=== PATIENT | female | born 1950 | race Caucasian/White ===

== ENCOUNTER 2019-11-07 07:08 | Outpatient (CLI) | payer MEDICARE ==
[2019-11-07] MEDS ORDERED: GADOTERATE 7.5 MMOL/15 ML SYR ONE (08:17)
[2019-11-07] MEDS ORDERED: MELO15TA24 PO (10:23)
[2019-11-08] MEDS ORDERED: ATOR40TA PO (14:59)
[2019-11-08] MEDS ORDERED: ASPI-515 PO/NG (14:59)
[2019-11-08] MEDS ORDERED: CLOP75TA PO (14:59)
== END 2019-11-07 23:59 | disposition home or self-care (01) ==
LOC: CFH 07:08
PROVIDERS: ATTEND Specialist
DX: I63.9 Cerebral infarction, unspecified (principal); C34.92 Malignant neoplasm of unspecified part of left bronchus or lung; D72.829 Elevated white blood cell count, unspecified; D47.3 Essential (hemorrhagic) thrombocythemia
CPT/HCPCS: 70553; A9575

== ENCOUNTER 2019-11-07 09:24 | Observation (INO) | payer MEDICARE ==
[~2019-11-07] VITALS: Ht 162.6 cm; Wt 68.6 kg
[2019-11-07 09:51] LABS: MEAN CORPUSCULAR HEMOGLOBIN 25.8 pg (27.0-34.8); MEAN CORPUSCULAR HGB CONC 31.8 g/dL (32.4-35.8); MEAN CORPUSCULAR VOLUME 81.2 fL (80-100); PLATELET COUNT 716 x10^3/uL (130-400); RED BLOOD COUNT 3.32 x10^6/uL (3.82-5.3)
[2019-11-07] MEDS ORDERED: SODIUM CHLORIDE FLUSH 10ML SYR IVF ONE (10:00)
--- NOTE | 2019-11-07 10:00 | NUR ---
POC ISCUSSED PT NOT TO RECIEVE TPA. PT VSS, NAD NOTED. PT TO MOVE TO CORE ROOM 21
--- NOTE | 2019-11-07 10:00 | NUR ---
PT WAS SEEN TODAY AT [facility] OUTPATIENT RADIOLOGY SENT BYHER MILLIE DESAI FOR CT SCAN AND PET SCAN. A SMALL CERABELLAR INFARCT WAS IDENTIFIED ON THE CT SCAN AND PT WAS INSTRUCTED TO COME TO THE ED. PT STRAIGHT TO TRAUMA ROOM 3 FROM TRIAGE, DR JIMENEZ AT BEDSIDE. ASSESSMENT REVIEWED.
[2019-11-07 10:02] LABS: ANION GAP 11 mmol/L (5-15); CALCIUM 10.4 mg/dL (8.5-10.1); CHLORIDE 100 mmol/L (98-107); CREATININE 1.44 mg/dL (0.55-1.02); INTERNATIONAL NORMALIZED RATIO 1.18 (0.93-1.1); PROTHROMBIN TIME 12.5 Seconds (9.6-11.5)
[2019-11-07 10:06] LABS: TROPONIN I < 0.015 ng/mL (0.000-0.045)
[2019-11-07 10:14] LABS: BASOPHILS # (AUTO) 0.24 x10^3/uL (0-0.1); BASOPHILS % (AUTO) 1 % (0-1); EOSINOPHILS # (AUTO) 0.34 x10^3/uL (0-0.4); EOSINOPHILS % (AUTO) 2 % (1-7); LYMPHOCYTES # (AUTO) 1.99 x10^3/uL (1-3.4); LYMPHOCYTES % (AUTO) 8 % (22-44); MD MORPH REVIEW ONLY; MONOCYTES # (AUTO) 1.05 x10^3/uL (0.2-0.8); MONOCYTES % (AUTO) 4 % (2-9); NEUTROPHILS # (AUTO) 19.99 x10^3/uL (1.8-6.8); NEUTROPHILS % (AUTO) 85 % (42-75)
[2019-11-07 10:15] LABS: <PLATELET ESTIMATE> INCREASED; ANISOCYTOSIS 1+; HYPOCHROMIA 1+; POLYCHROMASIA 1+
[2019-11-07 10:16] LABS: <PLT MORPHOLOGY> NORMAL PLT MORPH
[2019-11-07] MEDS ORDERED: MELO15TA24 PO (10:23)
--- NOTE | 2019-11-07 10:35 | NUR ---
SBAR RPT TO HANNAH BUTCHER AND PT MOVED TO ROOM 21
--- NOTE | 2019-11-07 10:36 | NUR ---
REPORT RECEIVED FROM CHRISTOFER YOUNG
--- NOTE | 2019-11-07 10:37 | NUR ---
WATER PROVIDED AT THIS TIME.
[2019-11-07] MEDS ORDERED: SODIUM CHLORIDE FLUSH 10ML SYR IVF PRN (11:00)
--- NOTE | 2019-11-07 11:15 | NUR ---
PT PROVIDED URINE SAMPLE AT THIS TIME. UA SENT.
[2019-11-07 11:30] LABS: MICROSCOPIC INDICATED
[2019-11-07 11:33] LABS: CULTURE INDICATED? NO
[2019-11-07] MEDS: SODIUM CHLORIDE 0.9% 1,000 ML IV SCH (12:07)
[2019-11-07] MEDS ORDERED: CEFTRIAXONE PMX 2GM/50ML 50 ML IV SCH (12:30)
[2019-11-07] MEDS ORDERED: ONDANSETRON 2MG/ML, 2ML IVPush PRN (12:30)
[2019-11-07] MEDS ORDERED: ONDANSETRON 4 MG TABLET PO PRN (12:30)
[2019-11-07] MEDS ORDERED: morphine SULFATE 10 MG/ML, 1ML IVPush PRN (12:30)
[2019-11-07] MEDS ORDERED: OXYcodone/APAP 5/325MG TABLET PO PRN (12:30)
--- NOTE | 2019-11-07 12:32 | NUR ---
BREAK RN: DR BORGES AT BEDSIDE. ADMIT ORDERS REC'D.
[2019-11-07] MEDS ORDERED: CEFTRIAXONE PMX 2GM/50ML 50 ML ONE (12:50)
--- NOTE | 2019-11-07 13:14 | NUR ---
NS INFUSING AT THIS TIME. PT TOLERATED WELL. US AT BEDSIDE NOW.
--- NOTE | 2019-11-07 14:24 | NUR ---
hospitalist at bedside at this time.
--- NOTE | 2019-11-07 14:53 | NUR ---
WARM BLANCKET GIVEN. LAB PAGED X2 FOR BLOOD CULTURE. AWAITING BLOOD CULTURE FOR ABX.
--- NOTE | 2019-11-07 15:03 | NUR ---
REPORT GIVEN TO MACARIO YOUNG. ALL QUESTIONS ANSWERED.
[2019-11-07 15:57] VITALS: BP 124/78
[2019-11-07 17:07] LABS: ANION GAP 11 mmol/L (5-15); CALCIUM 9.9 mg/dL (8.5-10.1); CHLORIDE 100 mmol/L (98-107); CREATININE 1.25 mg/dL (0.55-1.02)
[2019-11-07] MEDS: CLOPIDOGREL 75 MG TABLET PO SCH (18:41)
[2019-11-07] MEDS: ACETAMINOPHEN 650 MG/20.3 ML UDC PO PRN (19:47)
[2019-11-07 20:13] VITALS: BP 136/69
[2019-11-07] MEDS ORDERED: ATORVASTATIN 80 MG TABLET PO SCH (21:00)
[2019-11-08] MEDS ORDERED: DIPHENHYDRAMINE 12.5MG/5ML, 10ML UDC PO PRN
[2019-11-08 01:26] VITALS: BP 115/67
[2019-11-08] MEDS: SODIUM CHLORIDE 0.9% 1,000 ML IV SCH ×2 (02:08→11:40)
[2019-11-08 05:32] LABS: ANION GAP 9 mmol/L (5-15); CALCIUM 8.9 mg/dL (8.5-10.1); CHLORIDE 106 mmol/L (98-107); CHOLESTEROL, TOTAL 91 mg/dL (140-239); TRIGLYCERIDES 80 mg/dL (50-200); VLDL CHOLESTEROL 16 mg/dL (0-25)
[2019-11-08 05:35] LABS: CHOL/HDL RATIO 5.1; HDL CHOL % 20 % (28-40); HDL CHOLESTEROL (DIRECT) 18 mg/dL (40-60); LDL CHOLESTEROL,CALCULATED 57 mg/dL (54-169); LDL/HDL RATIO 3.2 (0.5-3.0)
[2019-11-08 07:37] VITALS: BP 99/62
[2019-11-08] MEDS ORDERED: ASPIRIN 81 MG TABLET CHEW PO/NG SCH (09:00)
[2019-11-08] MEDS: CLOPIDOGREL 75 MG TABLET PO SCH (09:03)
[2019-11-08] MEDS ORDERED: ACETAMINOPHEN 325 MG TABLET ONE (09:06)
[2019-11-08] MEDS: ACETAMINOPHEN 650 MG/20.3 ML UDC PO PRN (09:06)
[2019-11-08 12:53] VITALS: BP 117/67
[2019-11-08] MEDS ORDERED: CLOP75TA PO (14:59)
[2019-11-08] MEDS ORDERED: ATOR40TA PO (14:59)
[2019-11-08] MEDS ORDERED: ASPI-515 PO/NG (14:59)
[2019-11-08] MEDS ORDERED: CEFTRIAXONE PMX 2GM/50ML 50 ML IVPB SCH (16:00)
== END 2019-11-08 18:13 | disposition home health service (06) ==
LOC: ED 10:48 → INTOOBSV 12:32 → EDIP 12:32 → 4EST 16:00
PROVIDERS: ADMIT Hospitalist; ATTEND Family Medicine
DX: I63.9 Cerebral infarction, unspecified (principal); R53.1 Weakness; R63.4 Abnormal weight loss; D72.829 Elevated white blood cell count, unspecified; D50.9 Iron deficiency anemia, unspecified; D47.3 Essential (hemorrhagic) thrombocythemia; E87.1 Hypo-osmolality and hyponatremia; I12.9 Hypertensive chronic kidney disease with stage 1 through stage 4 chronic kidney disease, or unspecified chronic kidney disease; N18.3 Chronic kidney disease, stage 3 (moderate); E83.52 Hypercalcemia; C34.90 Malignant neoplasm of unspecified part of unspecified bronchus or lung; Z66 Do not resuscitate; Z87.891 Personal history of nicotine dependence; Z79.899 Other long term (current) drug therapy
CPT/HCPCS: 36415; 80048; 80061; 81001; 82040; 84145; 84484; 85025; 85610; 85730; 87040; 92523; 93005; 93306; 93356; 93880; 96361; 96365; 97162; 97166; 99285; G0378; J0696; J7030